=== PATIENT | female | born 1985 | race American Indian/Alaskan Native ===

== ENCOUNTER 2018-01-26 07:31 | Inpatient (IN) | payer BC, OTHER ==
[2018-01-26 07:46] VITALS: BMI 38.2
[2018-01-26] MEDS ORDERED: Oxytocin 30 units/LR 500ML 30 U/500 ML BAG IV ONE (07:56)
[2018-01-26] MEDS ORDERED: Sodium Chloride 0.9% 1,000 ML IV SCH (08:00)
[2018-01-26] MEDS ORDERED: Lactated Ringer's 1,000 ML IV SCH ×4 (08:00→17:12)
[2018-01-26] MEDS ORDERED: ceFAZolin 2 GM in Sodium Chloride 0.9% 100 ML IVPB ONE (08:30)
--- NOTE | 2018-01-26 08:37 | OBADHP ---
Datetime: 01/26/2018 08:11 Admit Comment, IP Provider: This is 32 y/o female with no PMH, , IUP@39 weeks- confir by US. Pat ient comes to the [facility] for [facility] . Patient denies any LOF/CTX/BV, + FM Patient denies any dizziness, SOB, chest pain, N/V/F or Urinary symptoms PNC: Dr. Montoya PNI: Denies any abnormal labs or any complications with this so far PMH: None OBGYN: 2x C-sections, No abnormal PAP, Denies any prior complications PSH: 2 x c-sections Allg: NKDA Meds: PNV FH: Denies SH: Denies alcohol/smoking or drug use ROS: As HPI VS: reviwed PE: patient, CV, resp, neuro exam unremarkable A/P: This is 32 y/o female with no PMH, , IUP@39 weeks- confir by US. [facility] comes [facility] for [facility] . - Admit to L_D - Dr. Montoya made aware - Follow up labs - Protocol - Monitor VS/FHR - NPO Case discussed with OB attending --- Luis Miguel Rollins, PGY-1 Pelvic Type - PN: Not Done Extremities - PN: Normal Abdomen - PN: Normal Back - PN: Normal Breast - PN: Not Done Lungs - PN: Normal Heart - PN: Normal Thyroid - PN: Normal Neurologic - PN: Normal HEENT - PN: Not Done General - PN: Normal Vital Signs Provider: Reviewed IP Chief Complaint: Scheduled Section Genitourinary Exam: Not Done DTRs - PN: Normal EGA AdmitDate IP: 39.0 IP Adm Impression: Term, intrauterine IP Admit Plan: Admit to unit; Initiate Section protocol; Observation/Evaluation Datetime: 01/26/2018 07:54 FHR - Baseline A Provider: 140 NICHD Variability Prov Fetus A: Moderate 6-25bpm NICHD Accel Fetus A IP Provider: [id number] FHR Category Provider Fetus A: Category I NICHD Decel Fetus A IP Provider: None
[2018-01-26 08:40] LABS: BASO % 0.5 % (0.0-2.0); EOS # 0.1 K/uL (0.0-0.7); EOS % 1.1 % (0.0-4.0); HEMOGLOBIN 13.2 g/dL (12.0-16.0); LYMPH # 1.6 K/uL (1.0-4.3); LYMPH % 22.7 % (20.0-40.0); MEAN CELL VOLUME 81.9 fl (81.0-99.0); MEAN CORPUSCULAR HEMOGLOBIN 27.6 pg (27.0-31.0); MEAN CORPUSCULAR HGB CONC 33.7 g/dL (33.0-37.0); MEAN PLATELET VOLUME 9.5 fl (7.2-11.7); MONO # 0.7 K/uL (0.0-0.8); MONO % 9.8 % (0.0-10.0); NEUT # 4.7 K/uL (1.8-7.0); NEUT % 65.9 % (50.0-75.0); NRBC % 0.2 % (0.0-0.0); RBC 4.78 Mil/uL (3.80-5.20); RED CELL DISTRIBUTION WIDTH 13.1 % (11.5-14.5); WHITE BLOOD COUNT 7.1 K/uL (4.8-10.8)
[2018-01-26] MEDS ORDERED: ePHEDrine 50 mg/ml Inj ONE (08:48)
[2018-01-26] MEDS ORDERED: Morphine 1 mg/ml preservative-free Inj(Duramorph) ONE (08:48)
[2018-01-26] MEDS ORDERED: Oxycodone/Acetaminophen 5/325 mg Tab PO PRN (11:02)
--- NOTE | 2018-01-26 11:02 | OBDS ---
DELIVERY PERSONNEL Delivery Doctor: Renee Montoya MD Scrub Nurse: Britney Solorzano OBT Member Of Parliament: Leona Rushing RN/Charlotte Lopez Anesthesiologist: MATERNAL INFORMATION Delivery Anesthesia: Spinal Maternal Complications: None Provider Comments: Repeat LFT . Patient delivered viable infant male with Apgars of 9 and 9 at one and 5 minutes respectively. Nor mal uterus, normal tubes and ovaries bilaterally, moderate to severe abdominal pelvic adhesions. Blood loss 800 mL Fluids 1300 mL lactated Ringer's Urine output 200 mL of clear urine No complications LABOR SUMMARY EDC: 02/02/2018 00:00 No. Babies in Womb: 1 Attempted: No Labor Anesthesia: None LABOR INFORMATION Reason for Induction: Not Applicable Oxytocin: N/A Group B Beta Strep: Negative Antibiotics # of Doses: Ancef 2 gms IVPB at 0905 Antibiotics Time of Last Dose: 0905 Steroids Given: None Reason Steroids Not Administered: Not Applicable MEMBRANES Membranes Rupture Method: Artificial Rupture of Membranes: 01/26/2018 09:50 Length of Rupture (hrs): 0.00 Amniotic Fluid Color: Clear Amniotic Fluid Amount: Small Amniotic Fluid Odor: Normal STAGES OF LABOR Stage 3 hrs: 0 Stage 3 min: 1 VAGINAL DELIVERY Episiotomy: None Laceration Extension: N/A Laceration Type: None Laceration Repair: Not Applicable CSECTION DELIVERY Primary Indication: Repeat Elective Secondary Indication: Repeat Elective CSection Urgency: Elective CSection Incidence: Repeat Labor: No Labor Elective: Elective CSection Incision: Lower Uterine Transverse Uterine Closure: Single-layer closure BABY A INFORMATION Delivery Date/Time: 01/26/2018 09:50 Method of Delivery: Born in Route : No : N/A Forceps: N/A Vacuum Extraction: N/A Shoulder Dystocia : No SHOULDER DYSTOCIA BABY A Infant Delivery Date/Time: 01/26/2018 09:50 PRESENTATION/POSITION BABY A Presentation: Cephalic Breech Presentation: N/A PLACENTA INFORMATION BABY A Placenta Delivery Time : 01/26/2018 09:51 Placenta Method of Delivery: Manual Removal Placenta Status: Delivered SCORES BABY A Heart Rate 1 min: >100 bpm Resp Effort 1 min: Good Cry Reflex Irritability 1 min: Cough or Sneeze or Pulls Away Muscle Tone 1 min: Active Motion Color 1 min: Body Fairdealing, Extremities Blue Resuscitation Effort 1 min: Tactile Stimulation SCORE 1 MIN: 9 Heart Rate 5 min: >100 bpm Resp Effort 5 min: Good Cry Reflex Irritability 5 min: Cough or Sneeze or Pulls Away Muscle Tone 5 min: Active Motion Color 5 min: Body Fairdealing, Extremities Blue Resuscitation Effort 5 min: Tactile Stimulation SCORE 5 MIN: 9 INFANT INFORMATION BABY A Gestational Age at Delivery: 39.0 Gestational Status: Term Infant Outcome : Liveborn Condition : Stable Sex: Male IDENTIFICATION/MEDS BABY A ID Band Number: [id number] ID Band Location: Left Leg; Left Arm Vitamin K Given : Not Given Erythromycin Given: Not Given WEIGHT/LENGTH BABY A Birthweight (gms): 3010 Infant Weight (lb): 6 Infant Weight (oz): 10 Infant Length Inches: 20.00 Infant Length cms: 50.8 CORD INFORMATION BABY A No. Cord Vessels: 3 Nuchal Cord : N/A Cord Blood Taken: Yes Infant Suction: Mouth ASSESSMENT BABY A Infant Complications: None Physical Findings at Delivery: Within Normal Limits Infant Respirations: Appears Normal Blow Pit Helper/ALS Called : No Infant Care By: /Serjio Transferred To: Remains with Mother
[2018-01-26] MEDS ORDERED: Morphine 1 mg/ml preservative-free Inj(Duramorph) EPI ONE (11:07)
--- NOTE | 2018-01-26 14:16 | OP ---
PROCEDURE DATE: 01/26/2018 PREOPERATIVE DIAGNOSIS: Elective repeat section at 39 weeks' gestational age. POSTOPERATIVE DIAGNOSIS: Elective repeat section at 39 weeks' gestational age. OPERATION PERFORMED: Repeat low-flap transverse section via Pfannenstiel incision. OPERATIVE FINDINGS: Viable infant male with Apgars 9 and 9 at 1 and 5 minutes respectively, normal uterus, normal tubes, and ovaries bilaterally, and moderate to severe abdominal adhesions. SURGEON: Darren Montoya MD PSYCHIATRIC NURSE PRACTITIONER: Dr. Xavi Barger. Dr. Barger was present from the beginning of the procedure to the end of procedure. Dr. Barger was integral in exposing the surgical field, controlling intraoperative bleeding, removal of adhesions, and manual delivery of the infant. TYPE OF ANESTHESIA: Spinal. ANESTHESIA ADMINISTERED BY: Shilpa Mims MD INTRAVENOUS FLUID INTAKE: 1300 mL lactated Ringer's. ESTIMATED BLOOD LOSS: 800 mL. URINE OUTPUT: 200 mL of clear urine at the end of the procedure. COMPLICATIONS: None. DESCRIPTION OF THE PROCEDURE: The patient was taken to the operating room where spinal anesthesia was found to be adequate. The patient was prepped and draped in the normal sterile fashion in the dorsal supine position with a leftward tilt. A Pfannenstiel skin incision was made with a scalpel. This was carried down through to the underlying layer of fascia with the scalpel. Midline defect was made in the fascial layer with the scalpel. The fascial incision was then extended sharply bilaterally with curved Masters scissors. The fascial layer was from the underlying rectus muscles both bluntly and sharply with curved Masters scissors. The rectus muscles were at the midline. The peritoneum was then identified, tented up with Jasmyn clamps x2, and entered sharply with Metzenbaum scissors. This peritoneal incision was then extended superiorly and inferiorly with good visualization of the urinary bladder. A bladder blade was inserted into the abdomen. The vesicouterine peritoneum was then identified, tented up with upward with Jasmyn clamps x2, and entered sharply with Metzenbaum scissors. This peritoneal incision was then extended bilaterally with Metzenbaum scissors. The bladder flap was created digitally. The Sadiq retractors were placed over the urinary bladder. The uterus was incised with a scalpel. The uterine incision was then extended bilaterally bluntly. The infant head was delivered atraumatically. Nose and mouth were suctioned with bulb suction. The remainder of the infant was delivered without complication. The cord was clamped and cut. The was handed off to awaiting pediatricians. The placenta was removed manually. The uterus was cleared of all clots and debris. The uterine incision was repaired with 0 Vicryl in a running, locked fashion. Reinspection of the uterine incision proved excellent hemostasis. The abdomen and pelvis were irrigated with copious amounts of warm normal saline. Reinspection of the uterine incision revealed excellent hemostasis. All instruments were removed from the patient. The peritoneal layer was closed with a running stitch of 2-0 Chromic. The rectus muscles were reapproximated with a running stitch of 2-0 Chromic. The fascial layer was closed with a running stitch of 0 Vicryl. The subcutaneous tissue was closed with a running suture of 3-0 plain. The skin was closed with a subcutaneous stitch of 3-0 Vicryl. The patient tolerated the procedure well. All sponge count, lap count, and needle counts were correct x2. There were no complications. The patient was given 2 g of Ancef just prior to the beginning of the procedure. The patient was taken to the recovery room in awake and in stable condition. Darren Montoya MD
[2018-01-26] MEDS: Oxycodone/Acetaminophen 5/325 mg Tab PO PRN (17:29)
[2018-01-27] MEDS: Oxycodone/Acetaminophen 5/325 mg Tab PO PRN ×3 (06:09→21:10)
--- NOTE | 2018-01-27 07:37 | OBPPN ---
Datetime: 01/27/2018 07:33 PP Pain Prov: Within normal limits PP Nausea Prov: Denies PP Flatus Prov: No PP BM Prov: No PP Abdomen/Uterus Prov: Normal PP Lochia Prov: Normal PP C/S Incision Prov: Normal PP Progress Prov: Normal PP Comments Phys Exam Prov: Incision: Bandage in place PP Impression Prov: Normal progression PP Plan Prov: Continue present management PP Progress Note Prov: POD 1 s/p Repeat LTCS, doing well, breast and bottle feeding Continue current care Vital Signs Provider PP: Reviewed; Within Normal Limits
[2018-01-27] MEDS ORDERED: Influenza Vaccine 18yr & older 0.5 ML/45 MCG SYR IM ONE ×2 (09:00)
[2018-01-27 09:02] LABS: MEAN CELL VOLUME 81.7 fl (81.0-99.0); MEAN CORPUSCULAR HEMOGLOBIN 27.5 pg (27.0-31.0); MEAN CORPUSCULAR HGB CONC 33.7 g/dL (33.0-37.0); RBC 3.66 Mil/uL (3.80-5.20); RED CELL DISTRIBUTION WIDTH 12.9 % (11.5-14.5); WHITE BLOOD COUNT 7.4 K/uL (4.8-10.8)
[2018-01-27 09:05] LABS: HEMOGLOBIN 10.1 g/dL (12.0-16.0)
[2018-01-28] MEDS: Simethicone 80 mg Chewtab PO PRN ×2 (02:37→21:16)
[2018-01-28] MEDS: Oxycodone/Acetaminophen 5/325 mg Tab PO PRN (21:16)
[2018-01-29] MEDS: Oxycodone/Acetaminophen 5/325 mg Tab PO PRN (05:27)
[2018-01-29] MEDS: Simethicone 80 mg Chewtab PO PRN (05:29)
--- NOTE | 2018-01-29 08:23 | OBPPN ---
Datetime: 01/28/2018 08:18 PP Pain Prov: Within normal limits PP Nausea Prov: Denies PP Flatus Prov: Yes PP Breasts Prov: Normal PP Heart Prov: Normal PP Lungs Prov: Normal PP Abdomen/Uterus Prov: Normal PP Lochia Prov: Normal PP Vulva/Perineum Prov: Normal PP CVA Tenderness Prov: Normal PP Extremities Prov: Normal PP C/S Incision Prov: Normal PP Progress Prov: Normal PP Comments Phys Exam Prov: Incision clean, dry, intact Uterus firm, below umbilicus No deep Tenderness bilaterally PP Impression Prov: Normal progression PP Plan Prov: Continue present management PP Progress Note Prov: Postop day #2 status post repeat , recovering well Continue current management Anticipate discharge home tomorrow. IP PP Procedures: None Vital Signs Provider PP: Reviewed; Within Normal Limits
--- NOTE | 2018-01-29 09:42 | OBDCSUM ---
Datetime: 01/29/2018 09:39 Discharged to, Provider: Home Follow up at, Provider: OB Disch Instr Activity: Normal activity Disch Instr Diet: Regular Discharge Instructions, Provider: Routine instructions given Discharge Diagnosis, Provider: Term Delivered Discharge Time: 01/29/2018 09:40 Follow up in weeks, Provider: 1 wk, 6 wks Disch Referrals: None Contraception discussed, Prov: Yes
--- NOTE | 2018-01-29 09:42 | OBPPN ---
Datetime: 01/29/2018 09:38 PP Pain Prov: Within normal limits PP Nausea Prov: Denies PP Flatus Prov: Yes PP BM Prov: No PP Breasts Prov: Normal PP Heart Prov: Normal PP Lungs Prov: Normal PP Abdomen/Uterus Prov: Normal PP Lochia Prov: Normal PP Vulva/Perineum Prov: Normal PP CVA Tenderness Prov: Normal PP Extremities Prov: Normal PP Comments Phys Exam Prov: Fundus firm under umbilicus, Incision clean/dry/intact PP Impression Prov: Normal progression PP Plan Prov: Continue present management PP Progress Note Prov: Patient denies CP, no SOB, no N/V, tolerating Po diet, ambulating/voiding wel l, mild lochia, abdominal pain tolerable with meds, mild lochia, +flatus A/P POD #3 1. discharge home, discharge instructions reivewed IP PP Procedures: None Vital Signs Provider PP: Reviewed; Within Normal Limits
[2018-01-29 17:55] VITALS: BP 137/80; PULSE 89; RESP 20; TEMP 98.2; O2SAT 98
== END 2018-01-29 13:42 | disposition home or self-care (01) | DRG 766 ==
LOC: H.L&D 08:06 → H.OB/GYN 14:50
PROVIDERS: ADMIT Obstetrics & Gynecology; ATTEND Obstetrics & Gynecology
PROC: 10D00Z1 Extraction of Products of Conception, Low, Open Approach (ICD-10-PCS; principal; 2018-01-26)
PROC: 4A1HXCZ Monitoring of Products of Conception, Cardiac Rate, External Approach (ICD-10-PCS; 2018-01-26)
DX: O34.211 Maternal care for low transverse scar from previous cesarean delivery (principal); Z37.0 Single live birth; O99.89 Other specified diseases and conditions complicating pregnancy, childbirth and the puerperium; N85.8 Other specified noninflammatory disorders of uterus; N73.6 Female pelvic peritoneal adhesions (postinfective); Z3A.39 39 weeks gestation of pregnancy